=== PATIENT | female | born 1955 | race American Indian/Alaskan Native ===

== ENCOUNTER 2021-11-29 09:35 | Outpatient (CLI) | payer MEDICARE ==
--- NOTE | 2021-11-29 11:18 | Magnetic Resonance Report ---
MRI right leg without contrast INDICATION: PAIN IN RIGHT LOWER LEG, marked area of concern.. COMPARISON: None FINDINGS: A skin marker has been placed over the lateral aspect of the proximal leg. No underlying a cute osseous abnormality identified. There are degenerative changes in the knee greatest in the media l compartment. No underlying mass or collection is identified. No acute musculotendinous abnormality. Fascial planes are preserved. No acute neurovascular abnormality. There is mild nonspecific subcutaneous edema and a few areas of the leg but not in the area of concer n. IMPRESSION: 1. No acute abnormality, mass, or collection in the area of concern along the lateral aspect of the p roximal leg. 2. Incidental findings as above. Signer Name: Mark Martell MD Signed: 11/29/2021 11:13 AM Workstation Name: [id number]
== END 2021-11-29 09:36 | disposition home or self-care (01) ==
LOC: MRI 09:35
PROVIDERS: ATTEND Orthopaedic Surgery
DX: M17.11 Unilateral primary osteoarthritis, right knee (principal)